=== PATIENT | female | born 1960 | race Caucasian/White ===

== ENCOUNTER → 2017-01-15 | Outpatient (CLI) | payer MEDICARE, OTHER ==
[~2017-01-15] MED LIST: ESCITALOPRAM OX20 MG PO; HYDROCODON-ACE1 EAC7 PO; HYDROXYZINE HCL50 MG PO; LIPITOR20 MG PO; LISINOPRIL10 MG PO; OMEPRAZOLE20 M2 PO; TOPAMAX PO
--- NOTE | ~2017-01-15 | MR104 ---
[facility] A Service [facility] RADIOLOGY TEXT RESULTS PATIENT: JUSTIN JACKSON [facility] 60 UNIT #: [id number] AGE: [address]: RADHA SPENCER MD SEX: F ORDER DR: [id number] [facility] [address] [place], [place] [address] [id number] O MR#: [id number] Acc #: [id number] NAME: JUSTIN JACKSON : 1960 SEX: F STUDY DATE/TIME: 01/15/2017 10:54 UNIT: [facility] ROOM: STUDY DESCRIPTION: MR Knee Wo Contrast Rt Attending Physician: Radha Spencer M.D. Referring Physician: Radha Spencer M.D. Ordering Physician: Radha Spencer M.D. Primary Care Physician: Aminta Vargas Aprn MRI CENTER REPORT This report is preliminary unless electronic signature is present. EXAM MRI of the right knee 01/15/2017 COMPARISON: None HISTORY Order states right knee pain for 4 months. Negative x-ray at [facility] 09/17/2016. Request right knee MRI without contrast. History sheet states right knee pain with radiation to the back of the knee and down the right leg for 4 months. No known injury. No related right knee surgery. The prior radiographs from 09/28/16 are of the left knee. No right knee radiographs are available for correlation. There is a minimal effusion without a popliteal cyst. 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 Femoral trochlear chondromalacia is noted including grade 4 chondromalacia of the of the femoral trochlear groove. Quadriceps and patellar tendons are intact. The cruciate ligaments are normal. The lateral meniscus, lateral collateral ligament complex, and popliteus tendon are intact. The articular cartilage of the lateral compartment is normal. [facility] A Service [facility] RADIOLOGY TEXT RESULTS PATIENT: JUSTIN JACKSON LOCATION: [facility] : 60 UNIT #: [id number] AGE: [address]: RADHA SPENCER MD SEX: F ORDER DR: There is medial compartment joint space narrowing and minimal osteophyte formation. There is moderate grade weightbearing chondromalacia of the medial femoral condyle. 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 There is a subtle insertional radial type tear in the posterior horn of the medial meniscus with marked enthesopathic marrow edema and mild cystic change at its enthesis on the tibia. The root does not appear fully detached. The MCL is intact. There is no marrow lesion, fracture, or sizeable loose body identified. IMPRESSION 1. Mild medial compartment arthrosis detailed above. 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 In addition, there is a free margin tear without complete detachment of the posterior root tibial insertion with marked inflammatory enthesopathy of the tibia. 2. Patellofemoral arthrosis including grade 4 chondromalacia detailed above. 3. Joint effusion. 4. Cruciate ligaments and lateral compartment within normal limits. 5. No loose bodies seen. Dictated by... Mary Soto M.D. THIS IS AN ELECTRONICALLY VERIFIED REPORT Mary Soto M.D. at 01/18/2017 2:15 PM PETTY/sonido TD: 01/18/2017 10:02 JOB #: [id number] MRI CENTER REPORT Page 1 of 1 COPY
== END | disposition home or self-care (01) ==
LOC: CMRI 10:02
DX: M25.561 Pain in right knee (principal); M17.11 Unilateral primary osteoarthritis, right knee; M23.321 Other meniscus derangements, posterior horn of medial meniscus, right knee; M23.221 Derangement of posterior horn of medial meniscus due to old tear or injury, right knee; M76.891 Other specified enthesopathies of right lower limb, excluding foot; M94.261 Chondromalacia, right knee; M25.461 Effusion, right knee
CPT/HCPCS: 73721

== ENCOUNTER → 2017-01-20 | Outpatient (CLI) | payer MEDICARE, OTHER ==
--- NOTE | ~2017-01-20 | CR63 ---
[facility] A Service of [facility] RADIOLOGY TEXT RESULTS PATIENT: JUSTIN JACKSON LOCATION: [facility] : 60 UNIT #: [id number] AGE: [address]: EMELYN VARGAS APR SEX: F ORDER DR: [id number] [facility] [address] [place], [place] [address] [id number] O MR#: [id number] Acc #: [id number] NAME: JUSTIN JACKSON : 1960 SEX: F STUDY DATE/TIME: 01/20/2017 9:59 UNIT: [facility] ROOM: STUDY DESCRIPTION: CR Chest 2 View Attending Physician: Emelyn Vargas Aprn Referring Physician: Emelyn Vargas Aprn Ordering Physician: Emelyn Vargas Aprn Primary Care Physician: Emelyn Vargas Aprn MEDICAL IMAGING REPORT This report is preliminary unless electronic signature is present EXAM Chest PA and lateral 01/20/2017 HISTORY Shortness of breath cough and chest congestion for 1 year. Benign essential hypertension, COPD exacerbation. Smoking history. FINDINGS PA and lateral examination of the chest upright shows a good expansion of the parenchyma with a normal distribution of the pulmonary vascularity. There is no indication of congestion, effusion, infiltrate, tumor, or nodular density. The pleural reflections and diaphragmatic contours are normal. The cardiac silhouette and mediastinal anatomy is within normal limits. IMPRESSION Normal chest. Dictated by... Tripp Zuniga M.D. THIS IS AN ELECTRONICALLY VERIFIED REPORT Tripp Zuniga M.D. at 01/21/2017 9:34 AM KAYCE/trent TD: 01/20/2017 12:47 JOB #: [id number] MEDICAL IMAGING REPORT Page 1 of 1 COPY
== END | disposition home or self-care (01) ==
LOC: CRAD 09:40
DX: J18.9 Pneumonia, unspecified organism (principal)
CPT/HCPCS: 71020